=== PATIENT | male | born 1990 | race Caucasian/White ===

== ENCOUNTER 2022-12-24 18:17 | Emergency (ER) | payer OTHER, SELFPAY ==
--- NOTE | ~2022-12-24 | CT_ITS ---
Non-contrast Head CT History: Head injury Technique: Axial non-contrast imaging of the brain was performed. Dose reduction technique was used on this scan by utilizing automated exposure control and iterative reconstruction technique. The dose -length product (DLP) was 605.33 mGy-cm. Findings: There is no evidence of intracranial hemorrhage, solid mass lesion, or acute infarct. Ther e is a probable arachnoid cyst in the right posterior fossa. Brain parenchyma appears normal. The ve ntricles and subarachnoid spaces are normal in size. The calvarium appears normal. The visualized p aranasal sinuses and mastoid air cells are clear. Impression: No acute abnormality seen. Probable arachnoid cyst in the right posterior fossa. Reviewed, dictated and finalized at location . Impression: No acute abnormality seen. Probable arachnoid cyst in the right posterior fossa.
--- NOTE | ~2022-12-24 | CT_ITS ---
Noncontrast CT scan of the cervical spine Technique: Multiple contiguous axial [address] images of the cervical spine were obtained and rec onstructed in 2D sagittal and coronal planes on the acquisition scanner. Dose reduction technique was used on this scan by utilizing automated exposure control, adjustment of the mA and/or kV according to patient size. The dose-length product (DLP) was 447.43 mGy-cm. Clinical History: Pain Findings: No fractures or dislocations. Unremarkable visualized bony structures. The intervertebral disc spaces are preserved. No prevertebral soft tissue swelling. Impression: No fracture or subluxation of the cervical spine. Reviewed, dictated and finalized at location . Impression: No fracture or subluxation of the cervical spine.
--- NOTE | 2022-12-24 18:08 | ECG_ITS ---
Measurements Intervals [place] Rate: 99 P: 48 OK: 96 QRS: 63 QRSD: 92 T: 45 QT: 345 QTc: 445 Interpretive Statements SINUS RHYTHM WITH SHORT OK INTERVAL BORDERLINE ST-T WAVE ABNORMALITY- INFERIOR LEADS BORDERLINE ECG NO PREVIOUS ECG AVAILABLE FOR COMPARISON Electronically Signed On 12-25-2022 9:05:00 CDT by Michael Dior D.O.
[2022-12-24 18:16] VITALS: BP 135/86; PULSE 100; RESP 18; TEMP 36.6; O2SAT 100
[2022-12-24 18:19] VITALS: BP 118/71; PULSE 88; RESP 20; TEMP 36.8; O2SAT 100
--- NOTE | 2022-12-24 18:37 | ED.SEIZURE ---
HPI - Seizure General Chief Complaint: Seizure Stated Complaint: Seizure Time Seen by Provider: 12/24/22 18:36 Source: patient and EMS Mode of arrival: EMS (Police) Limitations: no limitations History of Present Illness HPI Narrative: 32 years old white man came by ambulance from the long term with seizure-like activities. Patient been in the long term for 4 days. Did not take his Keppra, fentanyl, methamphetamine, benzo and the clonidine since he been jailed. positive urine incontinence during seizure, did not bite his tongue. Patient reports striking his head and neck during the seizure Related Data Allergies Allergy/AdvReac Type Severity Reaction Status Date / Time sulfamethoxazole Allergy Unknown Verified 12/24/22 18:26 [From Bactrim] trimethoprim [From Bactrim] Allergy Unknown Verified 12/24/22 18:26 Review of Systems Review of Systems: All systems reviewed & are unremarkable except as noted in HPI and below Exam Narrative: General appearance: Well-developed, well-nourished Skin: Normal color Head: Normocephalic, nontraumatic Eyes: Clear conjunctiva ENT: Oropharynx normal, ears normal, nose normal Neck: Supple, nontender Chest and respiratory: Airway patent, no respiratory distress, no accessory muscle use Heart: Regular rate/rhythm Abdomen: Soft, nontender, no organomegaly, quiet bowel sounds Vascular: Normal peripheral pulses, normal capillary refill. Musculoskeletal: Normal range of motion, nontender back Neurologic: Alert and oriented ?3, [employer] is normal as tested, no gross motor deficit Course Reevaluation(s) Reevaluation #1: Patient feeling great after IV fluid, IV Keppra and IV Ativan. Patient feels ready to go. Patient still me that he been taking benzo at the long term to treat possible fentanyl withdrawal Date: 12/24/22 Time: 21:51 Vital Signs Vital signs: Vital Signs Temperature 36.6 C 12/24/22 18:16 Pulse Rate 100 12/24/22 18:16 Respiratory Rate 18 12/24/22 18:16 Blood Pressure 135/86 12/24/22 18:16 Pulse Oximetry 100 12/24/22 18:16 Oxygen Delivery Room Air 12/24/22 18:16 Temperature 36.8 C 12/24/22 18:19 Pulse Rate 88 12/24/22 18:19 Respiratory Rate 20 12/24/22 18:19 Blood Pressure 118/71 12/24/22 18:19 Pulse Oximetry 100 12/24/22 18:19 Oxygen Delivery Room Air 12/24/22 18:16 MDM - Seizure MDM Narrative Medical decision making narrative: Patient presents with seizure-like activity. History of seizure not taking his Keppra for the last 4 days. Patient also used to take fentanyl, benzo and methamphetamine daily, last intake was 4 days ago. Patient been taking benzo at the long term to avoid withdrawal. Patient reported hitting his head and neck at the time when he have seizure. Differential diagnosis seizure secondary to noncompliance with seizure medication, opioid withdrawal. Physical exam is significant for urine incontinence while having seizure. Work-up today showed WBC of 13.2 secondary to stress and seizure, potassium of 3.2, urine drug screen showed positivity for benzo. Currently patient on benzo at the long term. CT head and cervical spine showed no acute abnormalities. Patient received 1 g of Keppra IV, 1 L of normal saline, 1 mg of Ativan IV, 40 mEq of potassium orally prior to discharge with significant improvement. I plan to discharge patient on trazodone, clonidine and Keppra. the pt was discharged to home.the pt,s condition upon discharge was fair,education was provided to the pt in reference to the final impression,discharge study results,treatment,prognosis and need for follow up . Differential Diagnosis Differential diagnosis: Likely generalized seizure, epilept
[2022-12-24] MEDS: SODIUM CHLORIDE 0.9% IV 1,000 ML 999 ML IV CONT (19:03)
[2022-12-24] MEDS: levETIRAcetam 1000MG/NACL100ML 1,000 MG/100 ML BAG 400 MG IVPB (19:03)
[2022-12-24 19:05] LABS: Albumin Level 4.2 g/dL (3.5-5.1); Alkaline Phosphatase 74 U/L (38-126); Anion Gap 11 mmol/L (8-16); Aspartate Amino Transferase 27 U/L (17-59); Bilirubin,Total 0.4 mg/dL (0.2-1.3); Blood Urea Nitrogen 14 mg/dL (9-20); Calcium 8.8 mg/dL (8.4-10.2); Carbon Dioxide 23 mmol/L (22-30); Chloride 103 mmol/L (98-107); Estimated Glomerular Filt Rate > 60; Glucose 102 mg/dL (65-110); Potassium 3.2 mmol/L (3.4-5.0); Sodium 137 mmol/L (137-145)
--- NOTE | 2022-12-24 19:07 | PC.NURSE ---
called Lab @1904 to add on CBCD with blood that was sent down after arrival. Spoke to Lilibeth
[2022-12-24 19:10] LABS: Alanine Aminotransferase 31 U/L (6-50)
[2022-12-24 19:12] LABS: Basophils Percent Auto 0.3 % (0.2-1.2); Eosinophils Absolute Auto 0.2 K/mm3 (0-0.3); Eosinophils Percent Auto 1.1 % (0-4.4); Hematocrit 38.1 % (42.0-52.0); Hemoglobin 12.9 g/dL (14.0-18.0); Immature Granulocyte Absolute 0.07 K/mm3 (0.00-0.031); Immature Granulocyte Percent A 0.5 % (0-0.5); Lymphocytes Absolute Auto 1.89 K/mm3 (0.9-3.2); Lymphocytes Percent Auto 14.3 % (18.3-44.2); Mean Corpuscular HGB Conc 33.9 g/dl (32-36); Mean Corpuscular Hemoglobin 29.1 pg (26-34); Mean Platelet Volume 10.4 fl (7.4-10.4); Monocytes Absolute Auto 0.6 K/mm3 (0.1-0.6); Monocytes Percent Auto 4.6 % (2.6-8.5); Neutrophils Absolute Auto 10.4 K/mm3 (1.3-6.7); Neutrophils Percent Auto 79.2 % (45.5-73.1); Platelet Count Result 432 k/mm3 (150-375); Red Blood Count 4.43 M/mm3 (4.6-6.20); Red Cell Distribution Width 13.4 % (11.5-14.5); White Blood Count 13.2 K/mm3 (4.5-10.0)
[2022-12-24] MEDS: LORazepam INJ (*CRX) 2 MG/ML VIAL 1 MG IV PUSH (19:26)
[2022-12-24] MEDS: POTASSIUM CHLORIDE 20 MEQ PACKET (FOR LIQUID) 40 MEQ PO (20:12)
[2022-12-24 21:12] LABS: Amphetamine Screen Urine Negative (Negative); Barbiturate Screen Urine Negative (Negative); Benzodiazepines Screen Urine Positive (Negative); Cannabinoid Screen Urine Negative (Negative); Cocaine Screen Urine Negative (Negative); Methadone Screen Urine Negative (Negative); Opiate Screen Urine Negative (Negative); Phencyclidine Screen Urine Negative (Negative)
== END 2022-12-24 22:00 ==
PROVIDERS: Emergency Provider Emergency Medicine
DX: G40.909 Epilepsy, unspecified, not intractable, without status epilepticus (principal); F11.23 Opioid dependence with withdrawal; F13.239 Sedative, hypnotic or anxiolytic dependence with withdrawal, unspecified; T42.6X6A Underdosing of other antiepileptic and sedative-hypnotic drugs, initial encounter; Z91.138 Patient's unintentional underdosing of medication regimen for other reason; R94.31 Abnormal electrocardiogram [ECG] [EKG]
CPT/HCPCS: 36415; 70450; 72125; 80053; 80307; 85025; 93005; 96374; 96375; 99284; A9270; J1953; J2060; J7030

== ENCOUNTER 2022-12-31 00:32 | Emergency (ER) | payer OTHER, SELFPAY ==
--- NOTE | ~2022-12-31 | CT_ITS ---
Noncontrast CT scan of the thoracic spine CLINICAL HISTORY: Back pain, status post fall TECHNIQUE: Axial noncontrast imaging of the thoracic spine was performed. Sagittal and coronal reform atted images were constructed. Dose reduction technique was used on this scan by utilizing automated exposure control and iterative reconstruction technique. The dose-length product (DLP) was 270.51 mGy -cm. FINDINGS: There is no fracture or subluxation of the thoracic spine. Vertebral bodies maintain normal height and alignment. Intervertebral disc spaces are well preserved. No disc bulge or herniation evident. No spinal canal stenosis evident. Paravertebral soft tissues are unremarkable. Impression: Unremarkable exam. Reviewed, dictated and finalized at location M. Impression: Unremarkable exam.
--- NOTE | ~2022-12-31 | CT_ITS ---
Non-contrast Head CT History: Head injury COMPARISON: 12/24/2022 Technique: Axial non-contrast imaging of the brain was performed. Dose reduction technique was used on this scan by utilizing automated exposure control and iterative reconstruction technique. The dose -length product (DLP) was 605.33 mGy-cm. Findings: Stable suspected posterior fossa arachnoid cyst. No intracranial hemorrhage or acute infarc t. Brain parenchyma appears normal. The ventricles and subarachnoid spaces are normal in size. The calvarium appears normal. The visualized paranasal sinuses and mastoid air cells are clear. Impression: No acute abnormality seen. Stable suspected posterior fossa arachnoid cyst. Reviewed, dictated and finalized at location . Impression: No acute abnormality seen. Stable suspected posterior fossa arachnoid cyst.
--- NOTE | ~2022-12-31 | CT_ITS ---
Noncontrast CT scan of the cervical spine Technique: Multiple contiguous axial [address] images of the cervical spine were obtained and rec onstructed in 2D sagittal and coronal planes on the acquisition scanner. Dose reduction technique was used on this scan by utilizing automated exposure control, adjustment of the mA and/or kV according to patient size. The dose-length product (DLP) was 270.51 mGy-cm. Clinical History: Pain Findings: No fractures or dislocations. Unremarkable visualized bony structures. The intervertebral disc spaces are preserved. No prevertebral soft tissue swelling. 4 mm groundglass nodule noted in t he right lung apex. Impression: No fracture or subluxation of the cervical spine. 4 mm groundglass nodule right lung apex. According to Fleischner Society criteria, no further follow- up required. Reviewed, dictated and finalized at location . Impression: No fracture or subluxation of the cervical spine. 4 mm groundglass nodule right lung apex. According to Fleischner Society criter ia, no further follow-up required.
[2022-12-31 00:34] VITALS: BP 132/86; PULSE 86; RESP 24; O2SAT 99
[2022-12-31] MEDS: levETIRAcetam 500MG/NACL 100ML 500 MG/100 ML BAG 400 MG IVPB ×2 (01:18→03:16)
[2022-12-31 01:21] LABS: Basophils Percent Auto 0.4 % (0.2-1.2); Eosinophils Absolute Auto 0.2 K/mm3 (0-0.3); Eosinophils Percent Auto 1.9 % (0-4.4); Hematocrit 37.5 % (42.0-52.0); Hemoglobin 12.3 g/dL (14.0-18.0); Immature Granulocyte Absolute 0.06 K/mm3 (0.00-0.031); Immature Granulocyte Percent A 0.6 % (0-0.5); Mean Corpuscular HGB Conc 32.8 g/dl (32-36); Mean Corpuscular Hemoglobin 29.4 pg (26-34); Mean Corpuscular Volume 89.5 fl (80-100); Mean Platelet Volume 9.4 fl (7.4-10.4); Monocytes Absolute Auto 0.6 K/mm3 (0.1-0.6); Monocytes Percent Auto 5.6 % (2.6-8.5); Neutrophils Absolute Auto 7.2 K/mm3 (1.3-6.7); Neutrophils Percent Auto 68.5 % (45.5-73.1); Platelet Count Result 391 k/mm3 (150-375); Red Blood Count 4.19 M/mm3 (4.6-6.20); Red Cell Distribution Width 13.7 % (11.5-14.5); White Blood Count 10.4 K/mm3 (4.5-10.0)
[2022-12-31 01:36] LABS: Alanine Aminotransferase 23 U/L (6-50); Albumin Level 3.8 g/dL (3.5-5.1); Alkaline Phosphatase 64 U/L (38-126); Anion Gap 2 mmol/L (8-16); Aspartate Amino Transferase 24 U/L (17-59); Bilirubin,Total 0.2 mg/dL (0.2-1.3); Blood Urea Nitrogen 11 mg/dL (9-20); Calcium 8.5 mg/dL (8.4-10.2); Carbon Dioxide 29 mmol/L (22-30); Chloride 104 mmol/L (98-107); Estimated Glomerular Filt Rate > 60; Glucose 100 mg/dL (65-110); Magnesium 2.2 mg/dL (1.6-2.3); Potassium 3.4 mmol/L (3.4-5.0); Sodium 135 mmol/L (137-145)
--- NOTE | 2022-12-31 02:37 | PC.NURSE ---
0235 pt. found having a sz. RN at pt. bedside. pt. turned to L side during sz. pt. had a grand mal sz that last approx. one minute. 0236 2 mg ativn given ivp vorb erp.
[2022-12-31 02:46] VITALS: BP 133/87; PULSE 81; RESP 19; O2SAT 99
--- NOTE | 2022-12-31 03:04 | ED.GENADULT ---
HPI - General Adult General Chief complaint: Seizure Stated complaint: POSSIBLE SZ Time Seen by Provider: 12/31/22 00:36 History of Present Illness HPI narrative: Patient 32-year-old gentleman who presents emergency department with chief complaint of seizure. Patient reports that he has prior history of seizure disorder and takes Keppra patient reports he has been incarcerated for a few weeks and has had several seizures while in halfway. Patient reports tonight he had 1 struck his head and reports that he has a headache and neck pain. The patient states he also feels a little still confused afterwards Related Data Allergies Allergy/AdvReac Type Severity Reaction Status Date / Time sulfamethoxazole Allergy Unknown Verified 12/31/22 00:37 [From Bactrim] trimethoprim [From Bactrim] Allergy Unknown Verified 12/31/22 00:37 Review of Systems Review of Systems: A 10 system review of systems was completed on the patient and is negative except for what is stated in the HPI. Nursing and ancillary documentation was reviewed. Exam Narrative: GENERAL: Well-appearing, well-nourished, and in no acute distress. HEAD: Normocephalic, atraumatic. EYES: PERRLA and EOMI. ENT: Nares clear, no rhinorrhea or epistaxis. Mucous membranes moist. NECK: Supple. CHEST: Clear to auscultation. No respiratory distress. HEART: Regular rate and rhythm. No murmur heard. Normal peripheral pulses. ABDOMEN: Soft, nontender, nondistended, normal active bowel sounds. EXTREMITIES: Normal range of motion. No edema. SKIN: Warm, dry, no rash. NEURO: No focal deficits. Alert and oriented x3. PSYCH: Normal mood and affect. Course Vital Signs Vital signs: Vital Signs Pulse Rate 86 12/31/22 00:34 Respiratory Rate 24 H 12/31/22 00:34 Blood Pressure 132/86 12/31/22 00:34 Pulse Oximetry 99 12/31/22 00:34 Oxygen Delivery Room Air 12/31/22 00:34 Pulse Rate 63 12/31/22 03:57 Respiratory Rate 15 12/31/22 03:57 Blood Pressure 110/74 12/31/22 03:57 Pulse Oximetry 98 12/31/22 03:57 Oxygen Delivery Room Air 12/31/22 02:43 Medical Decision Making Vital Signs Vital Signs: Vital Signs Pulse Rate 86 12/31/22 00:34 Respiratory Rate 24 H 12/31/22 00:34 Blood Pressure 132/86 12/31/22 00:34 Pulse Oximetry 99 12/31/22 00:34 Oxygen Delivery Room Air 12/31/22 00:34 Pulse Rate 63 12/31/22 03:57 Respiratory Rate 15 12/31/22 03:57 Blood Pressure 110/74 12/31/22 03:57 Pulse Oximetry 98 12/31/22 03:57 Oxygen Delivery Room Air 12/31/22 02:43 Lab Data 12/31/22 01:15 12/31/22 01:15 Labs: Lab Results 12/31/22 Range/Units 01:15 WBC 10.4 H (4.5-10.0) K/mm3 RBC 4.19 L (4.6-6.20) M/mm3 Hgb 12.3 L (14.0-18.0) g/dL Hct 37.5 L (42.0-52.0) % MCV 89.5 (80-100) fl MCH 29.4 (26-34) pg MCHC 32.8 (32-36) g/dl RDW 13.7 (11.5-14.5) % Plt Count 391 H (150-375) k/mm3 MPV 9.4 (7.4-10.4) fl Immature Gran % (Auto) 0.6 H (0-0.5) % Neut % (Auto) 68.5 (45.5-73.1) % Lymph % (Auto) 23.0 (18.3-44.2) % Ralls % (Auto) 5.6 (2.6-8.5) % Eos % (Auto) 1.9 (0-4.4) % Baso % (Auto) 0.4 (0.2-1.2) % Lymph # (Auto) 2.40 (0.9-3.2) K/mm3 Ralls # (Auto) 0.6 (0.1-0.6) K/mm3 Eos # (Auto) 0.2 (0-0.3) K/mm3 Baso # (Auto) 0.0 (0.0-0.1) K/mm3 Abs Immat Gran (auto) 0.06 H (0.00-0.031) K/mm3 Absolute Neuts (auto) 7.2 H (1.3-6.7) K/mm3 Absolute Nucleated RBC 0.0 (0.0-0.012) K/mm3 Nucleated RBC % 0.0 (0.0-0.2) % Sodium 135 L (137-145) mmol/L Potassium 3.4 (3.4-5.0) mmol/L Chloride 104 (98-107) mmol/L Carbon Dioxide 29 (22-30) mmol/L Anion Gap 2 L (8-16) mmol/L BUN 11 (9-20) mg/dL Creatinine 0.80 (0.7-1.3) mg/dL Estim Creat Clear Calc Not Reportable Estimated GFR > 60 (59 - ) Glucose 100 (65-110) mg/dL Calcium 8.5 (8.4-10.2) mg/dL Magnesium 2.2 (1.6-2.3) mg/dL Total Bilirubin 0
[2022-12-31 03:57] VITALS: BP 110/74; PULSE 63; RESP 15; O2SAT 98
[2022-12-31] MEDS: ACETAMINOPHEN 500 MG TABLET 1000 MG PO (05:30)
== END 2022-12-31 06:22 ==
PROVIDERS: Emergency Provider Emergency Medicine
DX: G40.909 Epilepsy, unspecified, not intractable, without status epilepticus (principal)
CPT/HCPCS: 36415; 70450; 72125; 72128; 80053; 83735; 85025; 96365; 96366; 99284; A9270; J1953; J2060